=== PATIENT | female | born 1945 | race Caucasian/White ===

== ENCOUNTER 2021-05-12 08:53 | Emergency (ER) | payer MEDICARE, OTHER | END 2021-05-12 11:53 | disposition home or self-care (01) | LOC: BURERS 08:53 | DX: S92.355A Nondisplaced fracture of fifth metatarsal bone, left foot, initial encounter for closed fracture (principal); S92.335A Nondisplaced fracture of third metatarsal bone, left foot, initial encounter for closed fracture; S92.345A Nondisplaced fracture of fourth metatarsal bone, left foot, initial encounter for closed fracture; S83.92XA Sprain of unspecified site of left knee, initial encounter; I10 Essential (primary) hypertension; W11.XXXA Fall on and from ladder, initial encounter ==